=== PATIENT | female | born 1960 | race Caucasian/White ===

== ENCOUNTER 2017-02-14 14:31 | Emergency (ER) | payer OTHER ==
[~2017-02-14] VITALS: Wt 74.0 kg
--- NOTE | 2017-02-14 15:44 | ERD ---
ER Documentation Chief Complaint Date/Time DATE: 02/14/17 TIME: 15:30 Chief Complaint RIGHT [facility] HPI 56-year-old female who is brought in by son here in the emergency department for right upper extremity injury secondary to mechanical fall at around 1 PM today. Son stated that patient(mother) was walking, tripped, fell, landed on her right wrist/arm. Patient complains of pain to right shoulder, right forearm , right wrist, right hand. Denies headache, head injury, neck pain, chest pain, back pain, abdominal pain, dizziness prior to fall,nausea, vomiting, constipation, diarrhea, loss of bowel bladder control, urinary symptoms, recent long travel, recent exposure to any illness, recent antibiotic use in the last 3 months, fever, chills. No known drug allergies. No past medical history. No surgical history. Does not take any prescription medication at home. 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 Denies smoking, use of alcohol, use of illegal drugs. LMP was 4 years ago. A0. ROS All systems reviewed and are negative except as per history of present illness. Medications Home Meds Active Scripts Ibuprofen* (Motrin*) 800 Mg Tab, 800 MG PO Q8 Y for PAIN AND OR ELEVATED TEMP, # 30 TAB Prov:PRITI MORGAN F 02/14/17 Hydrocodone/Acetaminophen (Pearsall 10-325 Tablet) 1 Each Tablet, 1 TAB PO Q6H Y for PAIN, #20 TAB Prov:GLADYSILABANROSAAR F 02/14/17 Allergies Allergies: Coded Allergies: No Known Allergy (Unverified , 02/14/17) PMhx/Soc Medical and Surgical Hx: pt denies Medical Hx, pt denies Surgical Hx Hx Alcohol Use: No Hx Substance Use: No Hx Tobacco Use: No Smoking Status: Never smoker Physical Exam Vitals Vital Signs Date Time Temp Pulse Resp B/P Pulse Ox O2 Delivery O2 Flow Rate FiO2 02/14/17 18:19 148/78 98 Room Air 02/14/17 14:35 98.2 75 17 168/90 98 Physical Exam Const: [] Head: Atraumatic Eyes: Normal Conjunctiva ENT: Normal External Ears, Nose and Mouth. Neck: Full range of motion..~ No meningismus. Resp: Clear to auscultation bilaterally Cardio: Regular rate and rhythm, no murmurs Abd: Soft, non tender, non distended. Normal bowel sounds Skin: No petechiae or rashes Back: No midline or flank tenderness Ext: No cyanosis. Right wrist has deformity and swelling no discoloration. Right wrist has tenderness to palpation volar and dorsal aspect. Right forearm has no swelling/discoloration/deformity but his tenderness to palpation dorsal and volar aspect. Right hand has tenderness to palpation on the base of the metacarpal area (dorsal and volar area). Right thumb: Has good and full function, full extension and flexion with a score of 5/5 of the metacarpophalangeal joint/DIP joint. Right index/middle/ring/pinky finger: Has good and full function, full extension flexion with a score of 5/5 of the metacarpophalangeal joint/PIP joint /DIP joint. Right elbow is unremarkable. Right shoulder is mild tenderness to palpation but has full range of motion. Circulation and sensation is intact. No neurovascular deficits. There is no evidence of tendon injury. Right elbow is unremarkable. Right shoulder shoulder is unremarkable. Neur: Awake and alert Psych: Normal Mood and Affect Results 24 hrs Current Medications Medications (Trade) Dose Ordered Sig/Betsy Route PRN Reason Start Time Stop Time Status Last Admin Dose Admin Acetaminophen/ Hydrocodone Bitart (Pearsall (10/325)) 1 tab ONCE ONCE PO 02/14/17 16:00 02/14/17 16:01 DC 02/14/17 15:40 Procedures/MDM Examination: Please see physical examination. Disease process, medical treatment was explained to the patient and family member. They verbalized understanding and agreed with the diagnostic tests, medical treatment, and follow-up care. Radiology: X-ray of the right wrist Impression: Acute, displaced right distal radius, ulnar styloid process, and triquetral carpal bone fractures with soft tissue swelling. X-ray of the right hand Impression: Transverse nondisplaced distal radial fracture. X-ray of the right forearm Impression: Acute, comminuted, displaced, right distal radial, ulnar styloid process, and pisiform wrist fractures. Soft tissue swelling. X-ray of the right shoulder Impression: Mild osteoarthritis in the glenohumeral joint. Consultation: Discussed with supervising physician, Dr. Avelino Rosales who suggested for me to call the orthopedic/surgeon. Spoke with Dr. Ghosh, who stated that patient needs a hand surgeon. He also stated that patient does not need to be admitted or have an emergent surgery at this time. His recommendation was to put the patient on a splint and sling, be discharged and have her and son call their insurance and have them find a hand surgeon/ specialist as soon as possible. My conversation with Dr. Ghosh was discussed with supervising physician, Dr. Avelino Rosales who agreed with my/with our medical decision making and the outpatient management, referral to a hand surgeon/specialist. Treatment: Sugar tong splint. Right upper extremity arm sling. Re-evaluation: No neurovascular deficits prior to and after the application of sugar tong splint and arm sling. Right thumb: Has good and full function, full extension and flexion with a score of 5/5 of the metacarpophalangeal joint/DIP joint. Right index/middle/ring/pinky finger: Has good and full function, full extension flexion with a score of 5/5 of the metacarpophalangeal joint/PIP joint /DIP joint. Right elbow is unremarkable. Right shoulder is mild tenderness to palpation but has full range of motion. Circulation and sensation is intact. No neurovascular deficits. There is no evidence of tendon injury. Right elbow is unremarkable. Right shoulder shoulder is unremarkable. Differential diagnosis: Fracture versus displaced fracture versus dislocation versus contusion versus sprain Medical decision m[age]-year-old female who is brought in by son here in the emergency department for right upper extremity injury secondary to mechanical fall at around 1 PM today. Son stated that patient(mother) was walking, tripped, fell, landed on her right wrist/arm. Patient complains of pain to right shoulder, right forearm, right wrist, right hand. Patient's complaint, patient's history about her complaint, son's history about the patient's complaint, my physical findings, diagnostic test results, my reevaluation are consistent my final diagnosis of wrist fracture, triquetral fracture, closed pisiform fracture, radial and ulnar fracture, wrist and hand injury secondary to fall. Medications prescribed are the following: Pearsall. Motrin. Patient and family member are made aware of the side effects and adverse reactions of the medications prescribed. Instructed on when to seek emergent and medical attention in case allergic/anaphylactic reactions or severe side effects and or adverse reactions to medications. Patient and family member verbalized understanding. Patient instructed Instructed to follow-up with his PCP in 24-48 hours. Follow-up with hand surgeon in the next 24 hours. Patient and his son stated that they will make sure to call their insurance tomorrow to find a hand surgeon. Resources was provided. Instructed to Call 911 for chest pain, shortness of breath. Advised to come back here in ED as soon as possible for severity of symptoms which includes but not limited to: any new symptoms; shortness of breath/difficulty of breathing; cardiovascular changes; severe gastrointestinal symptoms; signs and symptoms of bleeding and or infection; signs of compartment syndrome/neurovascular changes; neurological changes/deficits. Patient and family member verbalized understanding. Upon discharge, patient is alert and oriented x 4, speaks full and clear sentences, denies pain, has no neurological deficits, has no neurovascular deficits, difficulty of breathing. Breathing even and unlabored. Lung sounds are clear to auscultation. Not in distress. Appears comfortable. Ambulatory with steady gait. Appears satisfied with care provided here in ED. Departure Diagnosis: Primary Impression: Wrist fracture Additional Impressions: Radial fracture Radius and ulna distal fracture Triquetral fracture Closed fracture pisiform Condition: Stable Additional Instructions: Instructed to follow-up with his PCP in 24-48 hours. Follow-up with hand surgeon in the next 24 hours. Patient and his son stated that they will make sure to call their insurance tomorrow to find a hand surgeon. Instructed to Call 911 for chest pain, shortness of breath. Advised to come back here in ED as soon as possible for severity of symptoms which includes but not limited to: any new symptoms; shortness of breath/difficulty of breathing; cardiovascular changes; severe gastrointestinal symptoms; signs and symptoms of bleeding and or infection; signs of compartment syndrome/neurovascular changes; neurological changes/deficits. Patient and family member verbalized understanding. PRITI MORGAN Feb 14, 2017 15:44
[2017-02-14] MEDS ORDERED: HYDROCODONE/APAP (10/325) TAB PO ONE (16:00)
--- NOTE | 2017-02-14 16:41 | RADRPT ---
AMENDMENT: 02/14/2017 4:55:23 PM Nikki Johnson Md Upon further review, the dorsal carpal bone fracture involves the TRIQUETRIUM. Not the pisiform. PROCEDURE: XR Forearm. CLINICAL INDICATION: Pain TECHNIQUE: AP and lateral views of the right forearm were obtained. COMPARISON: No prior studies are available for comparison. FINDINGS: There is an acute, comminuted, intra-articular, right distal radial fracture with mild impaction. Ul merry styloid fractures are also seen. There is a pisiform dorsal wrist fracture may also be present. Soft tissue swelling is noted. IMPRESSION: Acute, comminuted, displaced, right distal radial, ulnar styloid process, and pisiform wrist fractur es. Soft tissue swelling. RPTAT: QQ .Nikki Johnson MD, Date Time Electronically viewed and signed by .Nikki Johnson MD, on 02/14/2017 16:55 .F/
--- NOTE | 2017-02-14 16:47 | RADRPT ---
PROCEDURE: Right hand series CLINICAL INDICATION: Right hand pain. Injury TECHNIQUE: AP, lateral, and oblique views of the right hand were obtained COMPARISON: None FINDINGS: A nondisplaced transverse fracture of the distal radius is seen with soft tissue swelling at the fra cture site. No other fracture is seen. No dislocation is seen. Polyarticular osteoarthritic changes in the PIP and DIP joints is seen. The remaining soft tissue structures are intact. IMPRESSION: Transverse nondisplaced distal radial fracture. RPTAT: HPNM Physician Perla Date Time Electronically viewed and signed by Physician Perla on 02/14/2017 16:46 /
--- NOTE | 2017-02-14 16:48 | RADRPT ---
PROCEDURE: XR Shoulder. CLINICAL INDICATION: Right shoulder pain. Injury TECHNIQUE: 3 views of the right shoulder were obtained. COMPARISON: None FINDINGS: No acute fracture or dislocation is seen. Mild degenerative changes in the glenohumeral joint is see n. The acromioclavicular joint is within normal limits. The osseous structures are well mineralized . The soft tissue structures are intact. The visualized portions of the right clavicle and chest a ppear unremarkable. IMPRESSION: Mild osteoarthritis in the glenohumeral joint. RPTAT: HPNM Physician Perla Date Time Electronically viewed and signed by Physician Perla on 02/14/2017 16:48 /
--- NOTE | 2017-02-14 16:54 | RADRPT ---
PROCEDURE: XR Wrist. CLINICAL INDICATION: Pain. TECHNIQUE: AP, lateral and oblique views of the right wrist were performed. COMPARISON: Right forearm series from the same day FINDINGS: There is an acute, mildly displaced, comminuted, intra-articular, right distal radial fracture with mild impaction. Mildly displaced ulnar styloid process and dorsal, triquetral carpal bone fractures are also noted. Soft tissue swelling is present. IMPRESSION: Acute, displaced right distal radius, ulnar styloid process, and triquetral carpal bone fractures wi th soft tissue swelling. RPTAT: QQ. .Nikki Johnson MD, Date Time Electronically viewed and signed by .Nikki Johnson MD, on 02/14/2017 16:53 .F/
[2017-02-14] MEDS ORDERED: HYDR-902 PO (18:04)
[2017-02-14] MEDS ORDERED: IBUP800T25 PO (18:05)
[2017-02-14 18:19] VITALS: BP 148/78
== END 2017-02-14 18:18 | disposition home or self-care (01) ==
LOC: FTE 14:31
DX: S52.501A Unspecified fracture of the lower end of right radius, initial encounter for closed fracture (principal); S62.164A Nondisplaced fracture of pisiform, right wrist, initial encounter for closed fracture; S52.611A Displaced fracture of right ulna styloid process, initial encounter for closed fracture; S62.111A Displaced fracture of triquetrum [cuneiform] bone, right wrist, initial encounter for closed fracture; W01.0XXA Fall on same level from slipping, tripping and stumbling without subsequent striking against object, initial encounter; Y92.9 Unspecified place or not applicable
CPT/HCPCS: 29125; 73030; 73090; 73110; 73130; Z7502; Z7610